=== PATIENT | male | born 1960 | race Caucasian/White ===

== ENCOUNTER 2017-02-11 07:09 | Emergency (ER) | payer MEDICAID ==
[~2017-02-11] VITALS: Ht 172.7 cm; Wt 82.0 kg
[2017-02-11 07:30] VITALS: BP 156/96
[2017-02-11] MEDS ORDERED: BACITRACIN ZINC OINT UDPKT TOP ONE (09:30)
[2017-02-11] MEDS ORDERED: LIDOCAINE HCL 1% 20ML VIAL (Pyxis) INJ INFIL ONE (09:30)
== END 2017-02-11 09:56 | disposition home or self-care (01) ==
LOC: ER 09:02
DX: R22.33 Localized swelling, mass and lump, upper limb, bilateral (principal); I10 Essential (primary) hypertension; I25.10 Atherosclerotic heart disease of native coronary artery without angina pectoris
CPT/HCPCS: 99283; J3490